=== PATIENT | female | born 1940 | race Caucasian/White ===

== ENCOUNTER 2016-10-10 00:20 | Observation (INO) ==
[2016-10-10] MEDS ORDERED: *HR* Morphine 2 MG/ML SYRINGE IVP PRN (04:32)
[2016-10-10] MEDS ORDERED: Naloxone 0.4 MG/ML INJ IVP PRN (04:32)
[2016-10-10] MEDS ORDERED: Dextrose Gel 15 GM PO PRN ×2 (04:52)
[2016-10-10] MEDS ORDERED: D5% in Water 1,000 ML IVC PRN (04:52)
[2016-10-10] MEDS ORDERED: *HR* Dextrose 50 % in Water (Syg) 50 ML SYRINGE IVP PRN (04:52)
--- NOTE | 2016-10-10 05:07 | Internal Med History&Physical ---
Date of Encounter: 10/10/16 Time of Encounter: 03:00 Assessment and Plan (1) Sepsis Current visit: Yes Status: Acute Patient has tachycardia, fever in [place] emergency room. Elevated lactate and one episode of hypotension. Meet criteria of sepsis. - Early IV fluid resuscitation started from the emergency room. -Continue antibiotic treatment for acute pyelonephritis. - Follow up lactate level. Qualifiers: Sepsis type: sepsis due to unspecified organism Qualified Code(s): A41.9 - Sepsis, unspecified organism (2) DVT prophylaxis Current visit: Yes Status: Acute Heparin subcutaneously (3) Acute kidney injury Current visit: Yes Status: Acute Elevated creatinine level, possibly due to dehydration. Continue hydrate patient and a follow-up renal function (4) Diabetes Current visit: No Status: Chronic Cover patient with sliding scale. Qualifiers: Diabetes mellitus type: type 2 Diabetes mellitus complication status: with unspecified complications Diabetes mellitus detention insulin use: without detention use Qualified Code(s): E11.8 - Type 2 diabetes mellitus with unspecified complications (5) Pyelonephritis Current visit: No Status: Acute Continue Rocephin IV. Follow urine culture (6) Dehydration Current visit: No Status: Acute Continue IV fluid hydration. Follow-up BMP. (7) Hypertension Current visit: Yes Status: Acute BP is not high. Hold lisinopril because of DAO. Follow-up BP Qualifiers: Hypertension type: essential hypertension Qualified Code(s): I10 - Essential (primary) hypertension Internal Medicine - H&P: HPI Chief complaint: Abdominal pain Admitted From: Home Plans for Post Hospital Care: Home History of present illness: Ms. Caraballo is a 76 year old female transferred from [place] the emergency room. Patient presented to the emergency room for abdominal pain. The pain is on the both sided flank. Patient has fever, nausea, and vomiting for about 1 week. In [place] ER, abdominal CT scan has been done, shows right-sided pyelonephritis. Urinalysis shows UTI. Patient has an episode of hypotension with BP 82/52, which was improved after hydration. Patient was admitted as sepsis, acute pyelonephritis, and UTI. CODE STATUS discussed with patient. Full code documented. Past Med Surg Social Fam HX - Past Medical History Medical history: diabetes, hyperlipidemia, hypertension, RA, other Psychiatric history: no psych history, anxiety - Past Surgical History Surgical History: hysterectomy, other - Social History Smoking Status: Never smoker Smokeless Tobacco Status: No Alcohol use: none Drug use: none - Family History Mother Living Status: Cause of : diabetes Hx Family Cardiac Disorders: Yes (chf) Hx Family Respiratory Disorders: No Hx Family Cancer: No Hx Family GI Disorders: No Hx Family Endocrine Disorder: Yes (diabetes) Hx Family Neuromuscular Disorders: No Hx Family Neurologic Disorders: No Hx Family HEENT Disorders: No Hx Family Autoimmune Disorders: No Internal Medicine - H&P: Meds Acetaminophen [Tylenol] 1,000 mg PO Q6H PRN tablet 03/16/15 [Rx] Atorvastatin [Lipitor] 10 mg PO HS 03/16/15 [History] Lisinopril [Zestril] 10 mg PO DAILY 03/16/15 [History] Metformin [Glucophage] 500 mg PO BID 03/16/15 [History] TraMADol [Ultram] 50 mg PO QID 03/16/15 [History] TraZODone 150 mg PO HS PRN 03/16/15 [History] Metoprolol [Lopressor] 12.5 mg PO BID #30 tablet 08/16/15 [Rx] Allergies codeine Allergy (Verified 03/16/15 09:20) Rash All Systems PM: A 10-system review of systems was performed and is negative for pertinent findings except as documented above in the HPI. - Constitutional Vitals: Temp Pulse Resp BP Pulse Ox 98.6 F 83 18 112/58 96 10/10/16 04:43 10/10/16 04:43 10/10/16 04:43 10/10/16 04:43 10/10/16 04:43 General appearance: Present: A&O X 3, no acute distress, answers questions appropriately - Head Head exam: Present: atraumatic, normocephalic - Eye Eye exam: Present: PERRL, conjuntiva pink, sclera anicteric Pupils: Present: PERRL - Neck Neck exam general surgery: Present: supple, trachea midline. Absent: lymphadenopathy - Respiratory Respiratory exam: Present: CTAB. Absent: accessory muscle use, rales, rhonchi, wheezes - Cardiovascular Cardiovascular exam: Present: RRR, +S1, +S2. Absent: diastolic murmur, gallop, rubs, systolic murmur - GI/Abdominal GI/Abdominal exam: Present: normal bowel sounds, soft, no peritoneal signs. Absent: distended, tenderness Additional comments: CVAT B/L - Extremities Exam Extremities exam: Present: warm, radial pulses palpable and symetrical. Absent : calf tenderness, cyanotic, pedal edema - Neurological Exam Neurological exam: Present: CN II-XII intact, oriented X3, no focal deficits. Absent: pronater drift, facial droop, speech deficit - Skin Skin exam: Present: dry, intact
[2016-10-10 05:16] LABS: Basophils % 0.3 %; Eosinophils % 0.4 %; Hematocrit 40.9 % (35.3-44.9); Hemoglobin 13.2 g/dL (11.5-15.4); Immature Granulocytes % 0.5 % (0-4); Lymphocytes # 1.1 K/mcL (0.6-4.6); Lymphocytes % 11.1 %; Mean Corpuscular HGB Conc 32.3 g/dL (31.6-35.5); Mean Corpuscular Hemoglobin 26.7 pg (28.0-33.3); Mean Corpuscular Volume 82.8 fL (83.0-100.0); Mean Platelet Volume 10.8 fL (9.4-12.4); Monocytes # 1.3 K/mcL (0.0-1.3); Monocytes % 13.6 %; Neutrophils # 7.1 K/mcL (1.6-8.9); Platelet Count 169 K/mcL (140-400); Red Blood Count 4.94 M/mcL (3.82-4.97); Segmented Neutrophils % 74.1 %
[2016-10-10 05:26] LABS: Calcium 8.9 mg/dL (8.6-10.8); Potassium 4.3 mEq/L (3.5-4.5)
[2016-10-10] MEDS: *HR* Heparin 5,000 UNIT/ML VIAL SQ SCH ×2 (06:36→18:44)
[2016-10-10] MEDS: Acetaminophen 325 MG TABLET PO PRN ×2 (08:00→16:07)
[2016-10-10] MEDS: Insulin LISPRO 300 UNITS/3 ML VIAL SQ SCH ×4 (08:04→22:14)
--- NOTE | 2016-10-10 09:53 | Event Note ---
Date of Encounter: 10/10/16 Time of Encounter: 09:49 76 year old female with h/o- HTN and DM, admitted with severe sepsis due to UTI/ right sided pyelonephritis, per CT abdomen, presented with persistent fever, nausea, emesis, back pain and abdominal pain. Patient seen and examined, reports some back pain, nausea; improving lower abdominal pain and emesis. Chest- S1, S2 heard; lungs are clear to auscultation B/L Abdomen- soft, mild tenderness in suprapubic area Reviewed labs- slightly elevated LA, Troponin, creatinine; Severe sepsis due to UTI/right-sided pyelonephritis- trend lactic acid and Troponins, likely elevated to severe sepsis. telemetry monitoring. IV hydration and monitor urine output and serum creatinine. Continue IV Rocephin, increase to twice daily and f/up urine and blood cultures. DAO- due to dehydration and sepsis. DM- Accucheck blood glucose monitoring with sliding scale insulin;
[2016-10-10] MEDS: 0.9 % Sodium Chloride 1,000 ML IVC SCH ×2 (12:53→23:29)
[2016-10-10] MEDS: Ondansetron 4 MG/2 ML VIAL IVP PRN (13:02)
[2016-10-11 04:39] LABS: Basophils % 0.4 %; Eosinophils # 0.1 K/mcL (0.0-0.6); Eosinophils % 1.3 %; Hematocrit 31.7 % (35.3-44.9); Immature Granulocytes % 0.6 % (0-4); Lymphocytes # 0.9 K/mcL (0.6-4.6); Mean Corpuscular HGB Conc 32.2 g/dL (31.6-35.5); Mean Corpuscular Hemoglobin 27.2 pg (28.0-33.3); Mean Corpuscular Volume 84.5 fL (83.0-100.0); Mean Platelet Volume 11.7 fL (9.4-12.4); Monocytes # 0.8 K/mcL (0.0-1.3); Monocytes % 16.1 %; Neutrophils # 2.9 K/mcL (1.6-8.9); Red Blood Count 3.75 M/mcL (3.82-4.97); Red Cell Distribution Width 13.1 % (11.5-14.5); Segmented Neutrophils % 61.6 %
[2016-10-11 04:49] LABS: Calcium 8.3 mg/dL (8.6-10.8)
[2016-10-11 05:12] LABS: Hemoglobin 10.2 g/dL (11.5-15.4)
[2016-10-11 05:14] LABS: Platelet Count 125 K/mcL (140-400)
[2016-10-11] MEDS: *HR* Heparin 5,000 UNIT/ML VIAL SQ SCH ×2 (08:17→16:25)
[2016-10-11] MEDS: Insulin LISPRO 300 UNITS/3 ML VIAL SQ SCH ×3 (08:55→18:25)
[2016-10-11] MEDS: Ondansetron 4 MG/2 ML VIAL IVP PRN ×2 (09:01→16:30)
--- NOTE | 2016-10-11 10:40 | Internal Med Progress Note ---
Date of Encounter: 10/11/16 Time of Encounter: 10:00 - Assessment and plan (1) Pyelonephritis Current Visit: Yes Status: Acute (2) Severe sepsis Current Visit: Yes Status: Acute Assessment and plan: Secondary to UTI and right-sided pyelonephritis. Patient was noted to have low- grade fever yesterday, currently improved. Resolved leukocytosis and lactic acidosis. Preliminary blood and urine cultures grow gram-negative rods. Continue IV Rocephin and follow up final cultures. Repeat blood cultures sent today. (3) Bacteremia due to Gram-negative bacteria Current Visit: Yes Status: Acute Assessment and plan: One set of initial blood culture grows gram-negative rods. Continue IV antibiotics, follow up final blood culture results. Repeat blood cultures drawn today. (4) Diabetes Current Visit: Yes Status: Chronic Assessment and plan: Accu-Chek blood glucose monitoring with sliding scale insulin. Diabetic diet. Qualifiers: Diabetes mellitus type: type 2 Diabetes mellitus complication status: with unspecified complications Diabetes mellitus terminal worker insulin use: without fdc use Qualified Code(s): E11.8 - Type 2 diabetes mellitus with unspecified complications (5) Neck pain Current Visit: Yes Status: Acute Assessment and plan: Likely due to improper positioning. Continue when necessary Tylenol and tramadol as patient declines opiate analgesics. (6) Acute kidney injury Current Visit: Yes Status: Acute Assessment and plan: Likely related to severe sepsis. Serum creatinine improving with IV hydration. Continue to monitor. (7) Essential hypertension Current Visit: Yes Status: Chronic - Subjective Interval history: Feels slightly better but reports headache and right-sided neck pain today. No nausea, vomiting, diarrhea; improving back pain and lower abdominal pain; patient still feels sick; - Constitutional Vitals: Temp Pulse Resp BP Pulse Ox 98.6 F 76 22 129/61 97 10/11/16 07:54 10/11/16 07:54 10/11/16 07:54 10/11/16 07:54 10/11/16 07:54 General appearance: Present: A&O X 3, no acute distress, answers questions appropriately - Neck Neck exam general surgery: Present: full ROM (restricted lateral flexion to right due to pain; no edema/erythema/focal swelling noted ) - Respiratory Respiratory exam: Present: CTAB. Absent: accessory muscle use, rales, rhonchi, wheezes - Cardiovascular Cardiovascular exam: Present: RRR, +S1, +S2. Absent: diastolic murmur, gallop, rubs, systolic murmur - GI/Abdominal GI/Abdominal exam: Present: normal bowel sounds, soft, no peritoneal signs. Absent: distended, tenderness - Extremities Exam Extremities exam: Present: full ROM, warm, radial pulses palpable and symetrical. Absent: calf tenderness, cyanotic, pedal edema - Neurological Exam Neurological exam: Present: CN II-XII intact, oriented X3, no focal deficits. Absent: pronater drift, facial droop, speech deficit Internal Medicine: Result - Labs CBC & Chem 7: 10/11/16 04:18 10/11/16 04:18 Labs: Short CBC 10/11/16 Range/Units 04:18 WBC 4.7 D (4.3-11.1) K/mcL Hgb 10.2 L D (11.5-15.4) g/dL Hct 31.7 L (35.3-44.9) % Plt Count 125 L (140-400) K/mcL Neutrophils # 2.9 (1.6-8.9) K/mcL BMP 10/11/16 04:18 Sodium 133 L Potassium 4.0 Chloride 107 Carbon Dioxide 18 L BUN 33 H Creatinine 1.32 H Glucose 115 H Calcium 8.3 L Consult Discharge Plan - Plan Referrals: Lalo Cnon MD [Primary Care Provider] - 10/17/16 9:00 am
[2016-10-11] MEDS: traMADol 50 MG TABLET PO PRN ×2 (11:33→18:28)
[2016-10-11] MEDS: 0.9 % Sodium Chloride 1,000 ML IVC SCH (16:25)
[2016-10-12] MEDS: Insulin LISPRO 300 UNITS/3 ML VIAL SQ SCH ×4 (02:24→17:19)
[2016-10-12] MEDS: *HR* Heparin 5,000 UNIT/ML VIAL SQ SCH ×2 (05:40→21:01)
[2016-10-12 05:45] LABS: Basophils % 0.4 %; Eosinophils # 0.1 K/mcL (0.0-0.6); Eosinophils % 2.2 %; Hematocrit 30.5 % (35.3-44.9); Hemoglobin 10.2 g/dL (11.5-15.4); Immature Granulocytes % 1.1 % (0-4); Lymphocytes # 0.8 K/mcL (0.6-4.6); Lymphocytes % 14.7 %; Mean Corpuscular HGB Conc 33.4 g/dL (31.6-35.5); Mean Corpuscular Volume 80.7 fL (83.0-100.0); Mean Platelet Volume 10.6 fL (9.4-12.4); Monocytes # 0.7 K/mcL (0.0-1.3); Monocytes % 12.3 %; Neutrophils # 3.8 K/mcL (1.6-8.9); Platelet Count 158 K/mcL (140-400); Red Blood Count 3.78 M/mcL (3.82-4.97); Red Cell Distribution Width 13.1 % (11.5-14.5); Segmented Neutrophils % 69.3 %
[2016-10-12 06:03] LABS: Calcium 8.6 mg/dL (8.6-10.8)
[2016-10-12] MEDS: 0.9 % Sodium Chloride 1,000 ML IVC SCH (08:14)
[2016-10-12] MEDS: *HR* OxyCODONE Immed Rel 5 MG TABLET PO PRN ×2 (09:23→21:01)
[2016-10-12] MEDS: amLODIPine 5 MG TABLET PO SCH (09:23)
--- NOTE | 2016-10-12 10:15 | Internal Med Progress Note ---
Date of Encounter: 10/12/16 Time of Encounter: 09:45 - Assessment and plan (1) Neck pain Current Visit: Yes Status: Acute Assessment and plan: Continues to have persistent right-sided neck pain. To rule out focus of infection given her recent bacteremia. We will get CT neck and cervical spine. Continue when necessary tramadol and Percocet as patient declines IV opiate analgesics. Physical therapy evaluation. (2) Pyelonephritis Current Visit: Yes Status: Acute (3) Severe sepsis Current Visit: Yes Status: Acute Assessment and plan: Secondary to UTI and right-sided pyelonephritis. Improving clinically. Resolved fever, leukocytosis and lactic acidosis. Blood and urine cultures at admission grow pansensitive Escherichia coli. Continue IV Rocephin. 2 sets of repeat blood cultures are so far negative. (4) Bacteremia due to Gram-negative bacteria Current Visit: Yes Status: Acute Assessment and plan: Plan as above. (5) Diabetes Current Visit: Yes Status: Chronic Assessment and plan: Accu-Chek blood glucose monitoring with sliding scale insulin. Diabetic diet. Qualifiers: Diabetes mellitus type: type 2 Diabetes mellitus complication status: with unspecified complications Diabetes mellitus correction insulin use: without correction use Qualified Code(s): E11.8 - Type 2 diabetes mellitus with unspecified complications (6) Acute kidney injury Current Visit: Yes Status: Acute Assessment and plan: Likely related to severe sepsis. Serum creatinine improving with IV hydration. Continue to monitor. (7) Essential hypertension Current Visit: Yes Status: Chronic Assessment and plan: Blood pressure noted to be improving. We will increase metoprolol and continue to monitor. - Subjective Interval history: Reports persistent right-sided neck pain, no visible swelling or redness; patient is very uncomfortable and miserable from the pain. No fever, emesis; persistent nausea and improving abdominal pain; - Constitutional Vitals: Temp Pulse Resp BP Pulse Ox 98 F 80 16 154/80 97 10/12/16 08:01 10/12/16 08:01 10/12/16 07:41 10/12/16 08:01 10/12/16 07:41 General appearance: Present: mild distress, A&O X 3, answers questions appropriately - Respiratory Respiratory exam: Present: CTAB. Absent: accessory muscle use, rales, rhonchi, wheezes - Cardiovascular Cardiovascular exam: Present: RRR, +S1, +S2. Absent: diastolic murmur, gallop, rubs, systolic murmur - GI/Abdominal GI/Abdominal exam: Present: distended, normal bowel sounds, soft, no peritoneal signs. Absent: tenderness - Extremities Exam Extremities exam: Present: full ROM, warm, radial pulses palpable and symetrical. Absent: calf tenderness, cyanotic, pedal edema Internal Medicine: Result - Labs CBC & Chem 7: 10/12/16 05:37 10/12/16 05:37 Labs: Short CBC 10/12/16 Range/Units 05:37 WBC 5.4 (4.3-11.1) K/mcL Hgb 10.2 L (11.5-15.4) g/dL Hct 30.5 L (35.3-44.9) % Plt Count 158 (140-400) K/mcL Neutrophils # 3.8 (1.6-8.9) K/mcL BMP 10/12/16 05:37 Sodium 136 Potassium 4.0 Chloride 107 Carbon Dioxide 22 BUN 24 H Creatinine 1.12 H Glucose 129 H Calcium 8.6 Consult Discharge Plan - Plan Referrals: Lalo Conn MD [Primary Care Provider] - 10/17/16 9:00 am
[2016-10-13 04:54] LABS: BUN/Creatinine Ratio 17 (6-26); Blood Urea Nitrogen 18 mg/dL (7-20); Carbon Dioxide 25 mEq/L (19-29); Chloride 103 mEq/L (98-109); Glucose 168 mg/dL (70-99); Osmolality,Calculated 288 (280-300); Potassium 3.7 mEq/L (3.5-4.5); Sodium 136 mEq/L (136-145); eGFR For African Americans > 60 (> 60); eGFR For Non-African Americans 52 (> 60)
[2016-10-13] MEDS: *HR* Heparin 5,000 UNIT/ML VIAL SQ SCH (06:10)
[2016-10-13] MEDS: Insulin LISPRO 300 UNITS/3 ML VIAL SQ SCH ×3 (06:16→11:54)
[2016-10-13] MEDS: amLODIPine 5 MG TABLET PO SCH (08:09)
[2016-10-13] MEDS: 0.9 % Sodium Chloride 1,000 ML IVC SCH ×2 (08:10→08:30)
--- NOTE | 2016-10-13 10:05 | Discharge Summary ---
Date of Encounter: 10/13/16 Time of Encounter: 09:54 - Discharge Diagnosis (1) Neck pain Priority: Primary Status: Acute (2) Pyelonephritis Priority: Primary Status: Acute (3) Severe sepsis Priority: Primary Status: Acute (4) Bacteremia due to Gram-negative bacteria Priority: Primary Status: Acute (5) Diabetes Priority: Secondary Status: Chronic Qualifiers: Diabetes mellitus type: type 2 Diabetes mellitus complication status: with unspecified complications Diabetes mellitus penitentiary insulin use: without intermediate school teacher use Qualified Code(s): E11.8 - Type 2 diabetes mellitus with unspecified complications (6) Acute kidney injury Priority: Primary Status: Acute (7) Essential hypertension Priority: Secondary Status: Chronic - Discharge Medications Prescriptions: OxyCODONE Immed Rel [Roxicodone 5 MG] 5 mg PO Q8HR PRN #10 tablet PRN Reason: Pain amLODIPine [Norvasc] 5 mg PO DAILY #30 tablet cephALEXin [Keflex] 500 mg PO BID #22 capsule Metoprolol [Lopressor] 25 mg PO BID #60 tablet Home Medications: Acetaminophen [Tylenol] 1,000 mg PO Q6H PRN tablet 03/16/15 [Rx] Atorvastatin [Lipitor] 20 mg PO HS 03/16/15 [History] TraMADol [Ultram] 50 mg PO QID PRN 03/16/15 [History] Gabapentin [Neurontin] 300 mg PO BID 10/10/16 [History] Loperamide HCl [Imodium A-D] 2 mg PO Q6H PRN 10/10/16 [History] Loratadine/Pseudophed (12 HR) [Claritin D (12HR)] 1 tab PO BID PRN 10/10/16 [ History] Ondansetron ODT [Zofran ODT] 4 mg SL Q8HR PRN 10/10/16 [History] glipiZIDE [Glucotrol] 5 mg PO DAILY 10/10/16 [History] Metoprolol [Lopressor] 25 mg PO BID #60 tablet 10/13/16 [Rx] OxyCODONE Immed Rel [Roxicodone 5 MG] 5 mg PO Q8HR PRN #10 tablet 10/13/16 [Rx] amLODIPine [Norvasc] 5 mg PO DAILY #30 tablet 10/13/16 [Rx] cephALEXin [Keflex] 500 mg PO BID #22 capsule 10/13/16 [Rx] Allergies/Adverse Reactions: Allergies codeine Allergy (Verified 03/16/15 09:20) Rash Procedures/tests Complete & Pending: Procedures Performed prior 72 hours Category Date Time Status CT cervical spine wo con [CT] Routine Cat Scan 10/12/16 10:10 Completed Date of admission: 10/10/16 02:47 Primary care physician: Rito Escudero Consults: 10/12/16 15:21 Consult to Physical Therapy [CONS] Routine Comment: Evaluate, develop and implement POC Reason for Consult: Weakness, right neck pain, severe sepsis/UTI Discharging clinician: Stpehania Spicer Anticipated date of discharge: 10/13/16 - Patient Status Disposition: Home Health Service Condition: Fair Functional capacity at discharge: uses cane/walker Overall status at discharge: patient is progressing back to baseline - Discharge Instructions Instructions: Cephalexin (By mouth), Metoprolol (By mouth), Oxycodone, Rapid Release (By mouth), Amlodipine (By mouth), Urinary Tract Infection in Women (DC) , Meal Planning with Diabetes Exchanges (DC) Follow Up With: Lalo Conn MD [Primary Care Provider] - 10/17/16 9:00 am - Diet and Activity Activity: as per physical therapy Diet: diabetic diet, low fat, low cholesterol, low salt diet Hospital course: Ms. Caraballo is a 76 year old female with the above medical problems, admitted with fever, nausea, vomiting and abdominal pain. SHe was noted to have severe sepsis from UTI and right-sided pyelonephritis, as evidenced by labs and CT abdomen, UA. SHe was started on IV Rocephin, aggressive IV hydration and supportive care and she gradually improved and remained hemodynamically stable, with improved fever/leukocytosis/lactic acidosis. Initial blood and urine cultures grew pansensitive E.coli and repeat blood cultures are so far negative. sHe c/o- right neck pain in the hospital, CT C-spine showed no e/o- osteomyelitis/focal abscess or infection. Her pain improved with pain medications. PT evaluation recommends [facility], for which referral has been completed. She is medically stable for discharge. - Time Spent with Patient Total time spent providing and/or coordinating discharge services: Greater than 30 minutes (50 min) - Constitutional Vitals: Temp Pulse Resp BP Pulse Ox 97.6 F 86 18 162/66 94 10/13/16 08:23 10/13/16 08:23 10/13/16 08:23 10/13/16 08:23 10/13/16 08:23 General appearance: Present: A&O X 3, answers questions appropriately - Respiratory Respiratory exam: Present: CTAB. Absent: accessory muscle use, rales, rhonchi, wheezes - Cardiovascular Cardiovascular exam: Present: RRR, +S1, +S2. Absent: diastolic murmur, gallop, rubs, systolic murmur
--- NOTE | 2016-10-13 10:07 | Physician Discharge Referral ---
Home Health/Hosp Referral Info Transfer to: Home Health Attending Provider: Stephania Spicer Provider in Charge Post Discharge: PCP - Diagnosis (1) Neck pain Priority: Primary Status: Acute (2) Pyelonephritis Priority: Primary Status: Acute (3) Severe sepsis Priority: Primary Status: Acute (4) Bacteremia due to Gram-negative bacteria Priority: Primary Status: Acute (5) Diabetes Priority: Secondary Status: Chronic (6) Acute kidney injury Priority: Primary Status: Acute (7) Essential hypertension Priority: Secondary Status: Chronic - Respiratory Orders Smoking Cessation: Smoking cessation has been advised. For more information, call the [place] Tobacco Quit Line at 9-630-SGZD-NOW. - Diet/Nutrition Diet/Nutrition Orders: Cardiac, No Concentrated Sweets (diabetic) - Activity Activity Orders: Ambulate - Services Needed Following services are medically necessary services: Nursing, Physical Therapy, Occupational Therapy - Transfer Medications Prescriptions: OxyCODONE Immed Rel [Roxicodone 5 MG] 5 mg PO Q8HR PRN #10 tablet PRN Reason: Pain amLODIPine [Norvasc] 5 mg PO DAILY #30 tablet cephALEXin [Keflex] 500 mg PO BID #22 capsule Metoprolol [Lopressor] 25 mg PO BID #60 tablet Home Medications: Acetaminophen [Tylenol] 1,000 mg PO Q6H PRN tablet 03/16/15 [Rx] Atorvastatin [Lipitor] 20 mg PO HS 03/16/15 [History] TraMADol [Ultram] 50 mg PO QID PRN 03/16/15 [History] Gabapentin [Neurontin] 300 mg PO BID 10/10/16 [History] Loperamide HCl [Imodium A-D] 2 mg PO Q6H PRN 10/10/16 [History] Loratadine/Pseudophed (12 HR) [Claritin D (12HR)] 1 tab PO BID PRN 10/10/16 [ History] Ondansetron ODT [Zofran ODT] 4 mg SL Q8HR PRN 10/10/16 [History] glipiZIDE [Glucotrol] 5 mg PO DAILY 10/10/16 [History] Metoprolol [Lopressor] 25 mg PO BID #60 tablet 10/13/16 [Rx] OxyCODONE Immed Rel [Roxicodone 5 MG] 5 mg PO Q8HR PRN #10 tablet 10/13/16 [Rx] amLODIPine [Norvasc] 5 mg PO DAILY #30 tablet 10/13/16 [Rx] cephALEXin [Keflex] 500 mg PO BID #22 capsule 10/13/16 [Rx] Allergies/Adverse Reactions: Allergies codeine Allergy (Verified 03/16/15 09:20) Rash Certification: Further, I certify that my clinical findings support that this patient is homebound (i.e. absences from home require considerable and taxing effort and are for medical reasons or yarsani services or infrequently or short duration when for other reasons) because: Homebound Reason: Patient requires assistance of a person or device to safely leave home, Leaving home requires considerable and taxing effort due to condition Attestation: My signature below is to certify that this patient is under my care and that I, or nurse practitioner, or a physician's senior agricultural assistant working with me, has a face-to -face encounter with this patient.
[2016-10-13 11:54] VITALS: BP 131/58
== END 2016-10-13 13:43 | disposition home health service (06) ==
LOC: 2NNU → SUATTDRO 05:50 → 2NNU 10-11 04:48
PROVIDERS: ADMIT Internal Medicine; ATTEND Internal Medicine

== ENCOUNTER 2017-05-13 06:13 | Observation (INO) ==
[2017-05-13] MEDS ORDERED: Lidocaine -MPF 1% 2 ML VIAL ID ONE (06:28)
[2017-05-13] MEDS ORDERED: CeFAZolin Syr 2,000MG/20 ML 2,000 MG/20 ML SYRINGE IVPB ONE (06:28)
[2017-05-13] MEDS ORDERED: Albuterol 2.5 MG/3 ML NEBULIZER IH ONE (06:41)
[2017-05-13] MEDS ORDERED: *HR* Remifentanil 2 MG VIAL IVP ONE (07:18)
[2017-05-13] MEDS ORDERED: *HR* Propofol 200 MG/20 ML VIAL IVP ONE (07:23)
[2017-05-13] MEDS ORDERED: *HR* FentaNYL (PF) 100 MCG/2 ML VIAL ONE (07:23)
[2017-05-13] MEDS ORDERED: *HR* Labetalol 20 MG/4 ML SYRINGE IVP PRN (07:26)
[2017-05-13] MEDS ORDERED: *HR* Promethazine 25 MG/ML VIAL IVP PRN (07:26)
[2017-05-13] MEDS ORDERED: *HR* HYDROmorphone (PF) 1 MG/ML SYRINGE IVP PRN ×2 (07:26→08:55)
[2017-05-13] MEDS ORDERED: Acetaminophen IV 1,000 MG/100 ML INFUS..BTL IVPB ONE (07:29)
--- NOTE | 2017-05-13 07:32 | Anesthesia Evaluation PreOp ---
Date of Encounter: 05/13/17 Time of Encounter: 07:20 - Past History Planned Operation: PLIF L2-4 Cardiac History: HTN (maintained on Amlodpine, Metoprolol), Hyperlipidemia ( maintained on Simvastatin), Other (ECHO 08/2015 - mpressions: Sinus rhythm with frequent PVCs in a bigeminal pattern. Normal LV systolic function, LVEF 55-60%. Mild concentric left ventricular hypertrophy. Moderate left ventricular diastolic dysfunction. Normal right ventricular structure and function. Mildly dilated left atrium. Mild mitral regurgitation. No evidence of pulmonary hypertension. Left Ventricular Wall Motion: Rest Echo Findings All wall segments showed normal motion.) Pulmonary History: Other (double pneumonia 04/2017) OVEN BAKER History: Other (R>>LLE pain maintained on Gabapentin, TRa) Other Medical History: Diabetes Type II, Other (Gout maintained on Colchicine) Anesthesia History: No Prior Anesthetic Complications, Past Anesthesia Alcohol Use: none Drug use: none Medications and Allergies Atorvastatin [Lipitor] 20 mg PO HS 03/16/15 [History] TraMADol [Ultram] 50 mg PO QID PRN 03/16/15 [History] Gabapentin [Neurontin] 300 mg PO BID 10/10/16 [History] Loperamide HCl [Imodium A-D] 2 mg PO Q6H PRN 10/10/16 [History] glipiZIDE [Glucotrol] 5 mg PO DAILY 10/10/16 [History] Metoprolol [Lopressor] 25 mg PO BID #60 tablet 10/13/16 [Rx] amLODIPine [Norvasc] 5 mg PO DAILY #30 tablet 10/13/16 [Rx] Albuterol Sulfate [Albuterol Inhaler] 2 puff IH Q4HR PRN 05/13/17 [History] Furosemide [Lasix] 40 mg PO DAILY 05/13/17 [History] Naproxen Sodium [Aleve] 220 mg PO BID PRN 05/13/17 [History] 3 Allergy/AdvReac Type Severity Reaction Status Date / Time codeine AdvReac Vomiting Verified 05/13/17 07:10 - Meds/Allergy Pre-op Review Medications Reviewed: Yes Allergies Reviewed: Yes Beta Blockers on Current Med List: No Anesthesia Results - Labs Laboratory Tests 04/15/17 14:08 WBC 5.9 Hgb 12.9 Hct 40.3 Plt Count 199 Laboratory Tests 04/15/17 04/15/1704/15/17 14:08 14:08 14:08 PT 11.4 INR 1.1 Sodium 142 Potassium 4.8 H Chloride 107 Carbon Dioxide 24 BUN 23 H Creatinine 1.13 H Est GFR (Non-Af Amer) 47 L Est Mean Plasma Glucose 128 Hemoglobin A1c 6.1 H - Imaging EKG: image reviewed (87bpm, INferior NE probably old) Anesthesia Exam O2 Sat Height 1.65 m Height 1.65 m Height 1.65 m Weight 82.554 kg Weight 82.554 kg Weight 82.554 kg O2 Sat by Pulse Oximetry 92 O2 Sat by Pulse Oximetry 92 Vital Signs Resp Pulse Ox 18 92 05/13/17 06:48 05/13/17 06:48 O2 Sat Height 1.65 m Height 1.65 m Height 1.65 m Weight 82.554 kg Weight 82.554 kg Weight 82.554 kg O2 Sat by Pulse Oximetry 92 O2 Sat by Pulse Oximetry 92 Vital Signs Resp Pulse Ox 18 92 05/13/17 06:48 05/13/17 06:48 " Height: 5'5" Weight: 182# bmi = 30 NPO (# of Hours): mnoC - HEENT Pupil (Motor): Pupils equal, EOMI Teeth: Normal Denture Type: Upper: Complete Oral Opening: Greater than 3 - OVEN BAKER LOC: Oriented OVEN BAKER Motor: Normal RUE, Normal LUE, Normal Face, Deficit RLE (Pain & weakness), Deficit LLE OVEN BAKER Sensory: Normal: RUE, LUE, RLE, LLE, Face - Cardiac Rhythm: Regular Murmur: None - Pulmonary Breath Sounds: bilateral Clear Respiratory Effort: Symmetrical Anesthesia Assess/Plan ASA Score: 3 Modified [place] Scale for Level of Consciousness: Cooperative, oriented, and tranquil Anesthetic Plan: General Monitoring Plan: Standard Monitors Recovery Plan: PACU Anes Supervising Prov Stmt: Pt seen/evaluated, R&B discussed, questions answered and consent obtained. Yuri Calderón MD
--- NOTE | 2017-05-13 07:43 | History & Physical Report ---
Date of Encounter: 05/13/17 Time of Encounter: 07:35 24 Hour HP Update - Instructions Instructions: If the History and Physical is less than 30 days old and was completed prior to A.M. admission and or procedure and has NOT been updated on calendar day of procedure please complete this update prior to performing procedure. - Update Patient reports changes in Medical Condition: No Changes in examination, assessment, or condition: No Changes in Medication: No Preop tests/diagnostics Reviewed: Yes Pre-Op MRSA Screen: Negative Surgery Remains Indicated: Yes Consent for Planned Operative Procedure(s) Verified: Yes - Pre-Operative Checklist Preoperative Checklist Indicated: No Prophylactic Antibiotic Ordered: Yes Home Medications Include Beta Tu: Yes Beta Tu Taken Today (Day of Surgery): No Beta Tu Taken Yesterday (Day Prior to Surgery): Yes Is VTE Prophylaxis Indicated?: Yes
[2017-05-13] MEDS: Ringers Solution, Lactated 1,000 ML IVC SCH ×3 (07:44→12:06)
[2017-05-13] MEDS ORDERED: EPHEDrine 50 MG/ML VIAL ONE (08:45)
[2017-05-13] MEDS ORDERED: Ondansetron 4 MG/2 ML VIAL IVP ONE (08:55)
[2017-05-13] MEDS ORDERED: *HR* Meperidine 25 MG/ML SYRINGE IVP PRN (08:55)
[2017-05-13] MEDS ORDERED: *HR* HYDROmorphone 2 MG/ML SYRINGE ONE (11:18)
[2017-05-13] MEDS ORDERED: *HR* Metoprolol 5 MG/5 ML VIAL IVP ONE (11:28)
--- NOTE | 2017-05-13 11:36 | Orthopedic Operative Note ---
Date of procedure: 05/13/17 Pre-op diagnosis: Spondylolisthesis, lumbar stenosis Post-op diagnosis: same Operation/Findings: Cnc Set Up Operator Lumbar Interbody Fusion L2-L4: The patient successfully underwent general endotracheal anesthesia. The patient was given antibiotics prior to the start of the procedure. Compression boots and stockings were used for deep vein thrombosis prophylaxis. A Santana catheter was placed. Leads for neuro monitoring were placed on the upper and lower extremities. This included the cranium. The neuro monitoring personnel confirmed there were satisfactory readings prior to the start of the procedure. The patient was turned prone on the [place] table. The back was prepped and draped in the usual sterile fashion. An incision was was marked and centered over the involved L2-L4 levels in the mid line. The incision was deepened through the lumbar fascia. Bovie cautery and Merritt elevators were used to reflect the paraspinal musculature at the lateral extent of the transverse processes of the involved L2 -L4 levels. Afshan clamps were placed over the L3 and L4 spinous processes. An intraoperative lateral fluoroscopy graft was obtained. A conversation was held between the surgeon and radiologist and both confirmed we had the correct operative levels. We then placed pedicle screws in standard fashion with the aid of fluoroscopy and anatomic landmarks. Briefly a starter awl was used. A gearshift was subsequently used to enter the steamboat pilot hole via a transpedicular route into the vertebral body. The steamboat pilot hole was tapped with an undersized instrument, and subsequently six 6.5 x 40 mm pedicle screws were placed bilaterally at the indicated L2, L3, and L4 levels. The screws were tested with the aid of the neurologic monitoring staff via pedicle screw stimulation. All reading suggested there was no significant cortical wall breech. The screws were also evaluated fluoro- graphically and appeared to be in satisfactory position. We then turned our attention to the decompression portion of the procedure. We removed the supraspinous and interspinous ligaments and subsequently the insertion of the ligamentum flavum on the undersurface of the proximal L3 lamina was dislodged with a curette. We then removed the ligamentum flavum as well as undercut the L3-4 facets at this L3-4 level to decompress the lateral recesses. We also performed a L3 laminectomy. After the decompression which was over and above that which was required to place the interbody graft, the foramen and traversing roots at this L3-4 level were found to be free and patent. We also took part of the medial facet in order to aid in the decompression. We moved proximally to the L2-3 level and again remove hypertrophied ligamentum flavum, undercut the L2-3 facets to decompress the lateral recesses, and partial medial facetectomies. We used a ball-tipped probe and found the foramen at this level as well as the lateral recesses to be decompressed. We then protected the neural elements including the thecal sac and traversing L4 nerve root on the right with a dural retractor. We made an annulotomy into the L3-L4 disc space and then removed the entire disc material using Pituitary instruments. We trialed various size grafts after the endplates were prepared for graft insertion. A 10 x 26 enter body graft fit well within the L3-L4 disc space. We obtained some bone from the right posterior superior iliac spine through us a separate incision and combined with this with the bone which we had saved from the L2 and L3 laminectomy portion of the procedure. This autograft bone was first placed in the anterior portion of the L3-4 disc space and additional bone was placed within the interbody graft spacer. We then placed the interbody graft spacer obliquely across the L3-L4 disc space towards the midline while protecting the neural elements with a root retractor. When the graft was found to be in satisfactory position the metal neutralizer was removed. We then copiously irrigated the wound. We then decorticated the L2, L3, and L4 transverse processes as well as the facet joints of the involved L2-3 and L3-4 levels to aid in the posterolateral fusion. We placed autograft bone in the lateral gutters over these regions. We then placed rods within the screw heads of the involved L2-L4 levels and first locked the distal screws and then subsequently locked the proximal screws so as to improve and reduce the spondylolisthesis previously seen. We then closed the wound in layers with 1 Vicryl for the fascia, 2-0 Vicryl. Subcutaneous tissue, and Dermabond was used for skin closure. Sterile dressings were placed over the wound. The patient was turned supine on a hospital bed and extubated. All sponge instruments and needle counts were correct at the end of the procedure. The patient tolerated the procedure well without complications. Anesthesia: GETA Surgeon: Rambo Soliz Jr Was there an assistant spa manager present: No Estimated blood loss (cc): 250 Specimen: None Condition: stable Disposition: PACU
--- NOTE | 2017-05-13 12:23 | Anesthesia Evaluation Post Op ---
Date of Encounter: 05/13/17 Time of Encounter: 12:22 - Vital Signs Vital Signs: Selected Entries 05/13/17 12:09 Temperature 98.5 F Pulse Rate 98 Respiratory Rate 14 Blood Pressure 140/86 O2 Sat by Pulse Oximetry 94 Oxygen Flow Rate (LPM) 2 - Lungs Lungs: Clear Ascult./Percussion - Airway Airway: Non-obstructed - Cardiovascular Regular Rate - Mental Status Mental Status: Alert & Oriented, Answers Appropriately - Pain Pain Scale: 0 Pain Scale used: Numeric (1 - 10) - Nausea Vomiting Nausea Vomiting: Responds to treatment with IV Meds - Hydration Hydration: Ice chips, Santana catheter - Discharge PostOp Status: Transfer Patient to floor
[2017-05-13] MEDS ORDERED: Acetaminophen 325 MG TABLET PO PRN (12:42)
[2017-05-13] MEDS ORDERED: *HR* OxyCODONE Immed Rel 5 MG TABLET PO SCH (12:42)
[2017-05-13] MEDS ORDERED: *HR* Morphine 2 MG/ML SYRINGE IVP PRN (12:42)
[2017-05-13] MEDS ORDERED: Ringers Solution, Lactated 1,000 ML IVC SCH (12:42)
[2017-05-13] MEDS ORDERED: Naloxone 0.4 MG/ML INJ IVP PRN (12:42)
[2017-05-13] MEDS: *HR* OxyCODONE Immed Rel 5 MG TABLET PO PRN ×2 (15:00→20:31)
[2017-05-13] MEDS: CeFAZolin Premix DUPLEX 2,000 MG/50 ML BAG IVPB SCH ×2 (16:06→23:12)
[2017-05-13] MEDS: Ondansetron 4 MG/2 ML VIAL IVP PRN (20:32)
[2017-05-14 04:48] LABS: Basophils % 0.1 %; Eosinophils % 0.1 %; Hematocrit 29.2 % (35.3-44.9); Hemoglobin 9.4 g/dL (11.5-15.4); Immature Granulocytes % 0.5 % (0-4); Immature Platelets 5.1 % (1.1-6.1); Lymphocytes # 1.3 K/mcL (0.6-4.6); Mean Corpuscular HGB Conc 32.2 g/dL (31.6-35.5); Mean Corpuscular Volume 80.9 fL (83.0-100.0); Mean Platelet Volume 10.8 fL (9.4-12.4); Monocytes % 8.6 %; Neutrophils # 8.8 K/mcL (1.6-8.9); Platelet Count 201 K/mcL (140-400); Red Blood Count 3.61 M/mcL (3.82-4.97); Red Cell Distribution Width 14.6 % (11.5-14.5); Segmented Neutrophils % 78.7 %
[2017-05-14 05:08] LABS: Calcium 8.6 mg/dL (8.6-10.3); Potassium 4.9 mEq/L (3.5-5.1)
[2017-05-14] MEDS: *HR* GlipiZIDE 5 MG TABLET PO SCH (07:44)
[2017-05-14] MEDS: Furosemide 40 MG TABLET PO SCH (07:44)
[2017-05-14] MEDS: amLODIPine 5 MG TABLET PO SCH (07:44)
[2017-05-14] MEDS: Ondansetron 4 MG/2 ML VIAL IVP PRN (11:00)
[2017-05-14] MEDS: *HR* OxyCODONE Immed Rel 5 MG TABLET PO PRN (15:04)
[2017-05-15] MEDS: *HR* OxyCODONE Immed Rel 5 MG TABLET PO PRN (07:24)
[2017-05-15] MEDS: Furosemide 40 MG TABLET PO SCH ×2 (09:28→09:30)
[2017-05-15] MEDS: amLODIPine 5 MG TABLET PO SCH (09:28)
[2017-05-15] MEDS: *HR* GlipiZIDE 5 MG TABLET PO SCH (09:28)
[2017-05-15] MEDS ORDERED: *HR* Dextrose 50 % in Water (Syg) 50 ML SYRINGE IVP PRN (15:28)
[2017-05-15] MEDS ORDERED: D5% in Water 1,000 ML IVC PRN (15:28)
[2017-05-15] MEDS ORDERED: Dextrose Gel 15 GM/37.5 ML TUBE PO PRN ×2 (15:28)
[2017-05-15 16:32] LABS: BUN/Creatinine Ratio 24 (6-26); Blood Urea Nitrogen 25 mg/dL (8-23); Carbon Dioxide 26 mEq/L (23-29); Chloride 102 mEq/L (98-107); Glucose 156 mg/dL (70-105); Osmolality,Calculated 284 (280-300); Potassium 3.9 mEq/L (3.5-5.1); Sodium 133 mEq/L (136-145); eGFR For African Americans > 60 (> 60); eGFR For Non-African Americans 51 (> 60)
[2017-05-15 16:41] LABS: Basophils % 0.2 %; Hematocrit 28.5 % (35.3-44.9); Hemoglobin 9.8 g/dL (11.5-15.4); Immature Granulocytes % 1.2 % (0-4); Lymphocytes % 7.3 %; Mean Corpuscular HGB Conc 34.4 g/dL (31.6-35.5); Mean Corpuscular Hemoglobin 26.9 pg (28.0-33.3); Mean Corpuscular Volume 78.3 fL (83.0-100.0); Monocytes # 1.5 K/mcL (0.0-1.3); Monocytes % 8.2 %; Platelet Count 212 K/mcL (140-400); Red Blood Count 3.64 M/mcL (3.82-4.97); Red Cell Distribution Width 14.8 % (11.5-14.5); Segmented Neutrophils % 83.1 %
[2017-05-15 17:02] LABS: Lymphocytes # 1.4 K/mcL (0.6-4.6); Neutrophils # 15.4 K/mcL (1.6-8.9)
[2017-05-15] MEDS: Insulin LISPRO 300 UNITS/3 ML VIAL SQ SCH ×2 (18:49→23:22)
[2017-05-15] MEDS ORDERED: Ipratropium/Albuterol Neb 3 ML IH PRN (19:03)
[2017-05-15] MEDS: *HR* HYDROcodone/Acet 5/325 mg TABLET PO PRN (22:07)
[2017-05-15] MEDS: Ondansetron 4 MG/2 ML VIAL IVP PRN (22:11)
[2017-05-16 05:26] LABS: Basophils # 0.1 K/mcL (0.0-0.2); Basophils % 0.3 %; Eosinophils % 0.2 %; Hematocrit 28.6 % (35.3-44.9); Hemoglobin 9.4 g/dL (11.5-15.4); Immature Granulocytes % 1.6 % (0-4); Lymphocytes # 1.8 K/mcL (0.6-4.6); Lymphocytes % 11.2 %; Mean Corpuscular HGB Conc 32.9 g/dL (31.6-35.5); Mean Corpuscular Hemoglobin 26.2 pg (28.0-33.3); Mean Corpuscular Volume 79.7 fL (83.0-100.0); Mean Platelet Volume 10.8 fL (9.4-12.4); Monocytes # 1.1 K/mcL (0.0-1.3); Monocytes % 7.2 %; Neutrophils # 12.6 K/mcL (1.6-8.9); Platelet Count 223 K/mcL (140-400); Red Blood Count 3.59 M/mcL (3.82-4.97); Red Cell Distribution Width 14.6 % (11.5-14.5); Segmented Neutrophils % 79.5 %
[2017-05-16 05:48] LABS: Calcium 9.1 mg/dL (8.6-10.3); Potassium 3.9 mEq/L (3.5-5.1)
[2017-05-16] MEDS: Furosemide 40 MG TABLET PO SCH (08:53)
[2017-05-16] MEDS: *HR* GlipiZIDE 5 MG TABLET PO SCH (08:53)
[2017-05-16] MEDS: amLODIPine 5 MG TABLET PO SCH (08:53)
[2017-05-16] MEDS: Insulin LISPRO 300 UNITS/3 ML VIAL SQ SCH ×4 (08:54→22:16)
[2017-05-16] MEDS: *HR* HYDROcodone/Acet 5/325 mg TABLET PO PRN (10:58)
[2017-05-17] MEDS: Insulin LISPRO 300 UNITS/3 ML VIAL SQ SCH ×4 (08:07→21:13)
[2017-05-17] MEDS: *HR* GlipiZIDE 5 MG TABLET PO SCH (08:07)
[2017-05-17] MEDS: Furosemide 40 MG TABLET PO SCH (08:08)
[2017-05-17] MEDS: amLODIPine 5 MG TABLET PO SCH (08:08)
[2017-05-17] MEDS: *HR* HYDROcodone/Acet 5/325 mg TABLET PO PRN ×2 (15:32→20:08)
--- NOTE | 2017-05-17 21:53 | Spine Progress Note ---
Date of Encounter: 05/14/17 Time of Encounter: 15:10 Subjective Principal diagnosis: Status post lumbar fusion Interval history: The patient is without complaints. Having episodes of confusion. Afebrile vital signs are stable. Dressing is clean dry and intact. Neurovascularly intact with regard to bilateral lower extremities. Fires all upper and lower extremity motor groups. . Assessment :stable. Plan mobilize ,continue analgesics, discharge planning. Objective Vital signs: Vital Signs Temp Pulse Resp BP Pulse Ox 05/17/17 19:36 97.9 F 77 14 111/66 93 05/17/17 15:14 98.3 F 85 16 117/57 94 05/17/17 11:10 97.9 F 76 16 112/62 96 05/17/17 07:08 98.6 F 83 18 100/57 95 05/17/17 04:39 98.7 F 83 16 106/67 92 05/17/17 00:39 99.2 F 77 16 94/54 95 Intake and Output 05/17/17 05/17/17 05/17/17 07:59 15:59 23:59 Intake Total 500 / 500 360 / 360 Output Total 150 / 150 200 / 200 150 / 150 Balance 350 / 350 160 / 160 -150 / -150 Intake: Oral 500 / 500 360 / 360 Output: Urine 150 / 150 200 / 200 150 / 150 Other: Meal Lunch Percent of Meal Consumed 35% # Voids 1 1 Blood Glucose* 124 133 114 - Labs CBC & BMP: 05/16/17 05:06 05/16/17 05:06 Labs: Abnormal lab results WBC 15.8 K/mcL (4.3-11.1) H 05/16/17 05:06 RBC 3.59 M/mcL (3.82-4.97) L 05/16/17 05:06 Hgb 9.4 g/dL (11.5-15.4) L 05/16/17 05:06 Hct 28.6 % (35.3-44.9) L 05/16/17 05:06 MCV 79.7 fL (83.0-100.0) L 05/16/17 05:06 MCH 26.2 pg (28.0-33.3) L 05/16/17 05:06 RDW 14.6 % (11.5-14.5) H 05/16/17 05:06 Neutrophils # 12.6 K/mcL (1.6-8.9) H 05/16/17 05:06 Sodium 135 mEq/L (136-145) L 05/16/17 05:06 BUN 31 mg/dL (8-23) H 05/16/17 05:06 Est GFR ( Amer) 55 (> 60) L 05/16/17 05:06 Est GFR (Non-Af Amer) 45 (> 60) L 05/16/17 05:06 BUN/Creatinine Ratio 27 (6-26) H 05/16/17 05:06 Glucose 150 mg/dL (70-105) H 05/16/17 05:06 POC Glucose 115 (58-89) H 05/17/17 20:43 Consult Discharge Plan - Plan Referrals: Rambo Soliz Jr, MD [Partnered Physician] - 05/29/17 9:15 am (Your appointments with Dr. Soliz are located in [place]. [address] [place], [place] [id number] phone number - [phone] ) Bryant Nielsen MD [Primary Care Provider] - 07/22/17 1:00 pm
--- NOTE | 2017-05-17 21:54 | Spine Progress Note ---
Date of Encounter: 05/15/17 Time of Encounter: 15:25 Subjective Principal diagnosis: Status post lumbar fusion Interval history: The patient is without complaints. Having episodes of confusion. Afebrile vital signs are stable. Incision is clean dry and intact. Neurovascularly intact with regard to bilateral lower extremities. Fires all upper and lower extremity motor groups. . Assessment :stable. Plan mobilize ,continue analgesics, discharge planning. Objective Vital signs: Vital Signs Temp Pulse Resp BP Pulse Ox 05/17/17 19:36 97.9 F 77 14 111/66 93 05/17/17 15:14 98.3 F 85 16 117/57 94 05/17/17 11:10 97.9 F 76 16 112/62 96 05/17/17 07:08 98.6 F 83 18 100/57 95 05/17/17 04:39 98.7 F 83 16 106/67 92 05/17/17 00:39 99.2 F 77 16 94/54 95 Intake and Output 05/17/17 05/17/17 05/17/17 07:59 15:59 23:59 Intake Total 500 / 500 360 / 360 Output Total 150 / 150 200 / 200 150 / 150 Balance 350 / 350 160 / 160 -150 / -150 Intake: Oral 500 / 500 360 / 360 Output: Urine 150 / 150 200 / 200 150 / 150 Other: Meal Lunch Percent of Meal Consumed 35% # Voids 1 1 Blood Glucose* 124 133 114 - Labs CBC & BMP: 05/16/17 05:06 05/16/17 05:06 Labs: Abnormal lab results WBC 15.8 K/mcL (4.3-11.1) H 05/16/17 05:06 RBC 3.59 M/mcL (3.82-4.97) L 05/16/17 05:06 Hgb 9.4 g/dL (11.5-15.4) L 05/16/17 05:06 Hct 28.6 % (35.3-44.9) L 05/16/17 05:06 MCV 79.7 fL (83.0-100.0) L 05/16/17 05:06 MCH 26.2 pg (28.0-33.3) L 05/16/17 05:06 RDW 14.6 % (11.5-14.5) H 05/16/17 05:06 Neutrophils # 12.6 K/mcL (1.6-8.9) H 05/16/17 05:06 Sodium 135 mEq/L (136-145) L 05/16/17 05:06 BUN 31 mg/dL (8-23) H 05/16/17 05:06 Est GFR ( Amer) 55 (> 60) L 05/16/17 05:06 Est GFR (Non-Af Amer) 45 (> 60) L 05/16/17 05:06 BUN/Creatinine Ratio 27 (6-26) H 05/16/17 05:06 Glucose 150 mg/dL (70-105) H 05/16/17 05:06 POC Glucose 115 (58-89) H 05/17/17 20:43 Consult Discharge Plan - Plan Referrals: Rambo Soliz Jr, MD [Partnered Physician] - 05/29/17 9:15 am (Your appointments with Dr. Soliz are located in [place]. [address] [place], [place] [id number] phone number - [phone] ) Bryant Nielsen MD [Primary Care Provider] - 07/22/17 1:00 pm
--- NOTE | 2017-05-17 21:55 | Spine Progress Note ---
Date of Encounter: 05/16/17 Time of Encounter: 08:45 Subjective Principal diagnosis: Status post lumbar fusion Interval history: The patient is without complaints. Having episodes of confusion. Poorly mobilizing. Afebrile vital signs are stable. Incision is clean dry and intact. Neurovascularly intact with regard to bilateral lower extremities. Fires all upper and lower extremity motor groups. . Assessment :stable. Plan mobilize ,continue analgesics, discharge planning. Objective Vital signs: Vital Signs Temp Pulse Resp BP Pulse Ox 05/17/17 19:36 97.9 F 77 14 111/66 93 05/17/17 15:14 98.3 F 85 16 117/57 94 05/17/17 11:10 97.9 F 76 16 112/62 96 05/17/17 07:08 98.6 F 83 18 100/57 95 05/17/17 04:39 98.7 F 83 16 106/67 92 05/17/17 00:39 99.2 F 77 16 94/54 95 Intake and Output 05/17/17 05/17/17 05/17/17 07:59 15:59 23:59 Intake Total 500 / 500 360 / 360 Output Total 150 / 150 200 / 200 150 / 150 Balance 350 / 350 160 / 160 -150 / -150 Intake: Oral 500 / 500 360 / 360 Output: Urine 150 / 150 200 / 200 150 / 150 Other: Meal Lunch Percent of Meal Consumed 35% # Voids 1 1 Blood Glucose* 124 133 114 - Labs CBC & BMP: 05/16/17 05:06 05/16/17 05:06 Labs: Abnormal lab results WBC 15.8 K/mcL (4.3-11.1) H 05/16/17 05:06 RBC 3.59 M/mcL (3.82-4.97) L 05/16/17 05:06 Hgb 9.4 g/dL (11.5-15.4) L 05/16/17 05:06 Hct 28.6 % (35.3-44.9) L 05/16/17 05:06 MCV 79.7 fL (83.0-100.0) L 05/16/17 05:06 MCH 26.2 pg (28.0-33.3) L 05/16/17 05:06 RDW 14.6 % (11.5-14.5) H 05/16/17 05:06 Neutrophils # 12.6 K/mcL (1.6-8.9) H 05/16/17 05:06 Sodium 135 mEq/L (136-145) L 05/16/17 05:06 BUN 31 mg/dL (8-23) H 05/16/17 05:06 Est GFR ( Amer) 55 (> 60) L 05/16/17 05:06 Est GFR (Non-Af Amer) 45 (> 60) L 05/16/17 05:06 BUN/Creatinine Ratio 27 (6-26) H 05/16/17 05:06 Glucose 150 mg/dL (70-105) H 05/16/17 05:06 POC Glucose 115 (58-89) H 05/17/17 20:43 Consult Discharge Plan - Plan Referrals: Rambo Soliz Jr, MD [Partnered Physician] - 05/29/17 9:15 am (Your appointments with Dr. Soliz are located in [place]. [address] [place] [address] phone number - [phone] ) Bryant Nielsen MD [Primary Care Provider] - 07/22/17 1:00 pm
--- NOTE | 2017-05-17 21:56 | Spine Progress Note ---
Date of Encounter: 05/17/17 Time of Encounter: 21:55 Subjective Principal diagnosis: Status post lumbar fusion Interval history: The patient is without complaints. Having episodes of confusion. Poorly mobilizing. Afebrile vital signs are stable. Incision is clean dry and intact. Neurovascularly intact with regard to bilateral lower extremities. Fires all upper and lower extremity motor groups. . Assessment :stable. Plan mobilize ,continue analgesics, discharge planning. Has arrangements with [facility]. Objective Vital signs: Vital Signs Temp Pulse Resp BP Pulse Ox 05/17/17 19:36 97.9 F 77 14 111/66 93 05/17/17 15:14 98.3 F 85 16 117/57 94 05/17/17 11:10 97.9 F 76 16 112/62 96 05/17/17 07:08 98.6 F 83 18 100/57 95 05/17/17 04:39 98.7 F 83 16 106/67 92 05/17/17 00:39 99.2 F 77 16 94/54 95 Intake and Output 05/17/17 05/17/17 05/17/17 07:59 15:59 23:59 Intake Total 500 / 500 360 / 360 Output Total 150 / 150 200 / 200 150 / 150 Balance 350 / 350 160 / 160 -150 / -150 Intake: Oral 500 / 500 360 / 360 Output: Urine 150 / 150 200 / 200 150 / 150 Other: Meal Lunch Percent of Meal Consumed 35% # Voids 1 1 Blood Glucose* 124 133 114 - Labs CBC & BMP: 05/16/17 05:06 05/16/17 05:06 Labs: Abnormal lab results WBC 15.8 K/mcL (4.3-11.1) H 05/16/17 05:06 RBC 3.59 M/mcL (3.82-4.97) L 05/16/17 05:06 Hgb 9.4 g/dL (11.5-15.4) L 05/16/17 05:06 Hct 28.6 % (35.3-44.9) L 05/16/17 05:06 MCV 79.7 fL (83.0-100.0) L 05/16/17 05:06 MCH 26.2 pg (28.0-33.3) L 05/16/17 05:06 RDW 14.6 % (11.5-14.5) H 05/16/17 05:06 Neutrophils # 12.6 K/mcL (1.6-8.9) H 05/16/17 05:06 Sodium 135 mEq/L (136-145) L 05/16/17 05:06 BUN 31 mg/dL (8-23) H 05/16/17 05:06 Est GFR ( Amer) 55 (> 60) L 05/16/17 05:06 Est GFR (Non-Af Amer) 45 (> 60) L 05/16/17 05:06 BUN/Creatinine Ratio 27 (6-26) H 05/16/17 05:06 Glucose 150 mg/dL (70-105) H 05/16/17 05:06 POC Glucose 115 (58-89) H 05/17/17 20:43 Consult Discharge Plan - Plan Referrals: Rambo Soliz Jr, MD [Partnered Physician] - 05/29/17 9:15 am (Your appointments with Dr. Soliz are located in [place]. [address] [place] [address] phone number - [phone] ) Bryant Nielsen MD [Primary Care Provider] - 07/22/17 1:00 pm
[2017-05-18] MEDS: *HR* HYDROcodone/Acet 5/325 mg TABLET PO PRN (01:18)
[2017-05-18] MEDS: *HR* GlipiZIDE 5 MG TABLET PO SCH (09:45)
[2017-05-18] MEDS: Furosemide 40 MG TABLET PO SCH (09:45)
[2017-05-18] MEDS: amLODIPine 5 MG TABLET PO SCH (09:45)
[2017-05-18] MEDS: Insulin LISPRO 300 UNITS/3 ML VIAL SQ SCH ×2 (09:46→13:07)
[2017-05-18 11:33] VITALS: BP 124/71
--- NOTE | 2017-05-18 12:27 | Discharge Summary ---
Date of Encounter: 05/18/17 Time of Encounter: 12:24 - Discharge Diagnosis (1) Spondylolisthesis Priority: Primary Status: Chronic Qualifiers: Spinal region: lumbar Qualified Code(s): M43.16 - Spondylolisthesis, lumbar region (2) Lumbar stenosis Priority: Secondary Status: Chronic Qualifiers: Neurogenic claudication status: without neurogenic claudication Qualified Code(s): M48.061 - Spinal stenosis, lumbar region without neurogenic claudication (3) Lumbar radiculopathy Priority: Secondary Status: Chronic - Discharge Medications Prescriptions: HYDROcodone/Acet 5/325 mg [Poneto 5-325 mg] 2 tab PO Q4H PRN #60 tablet PRN Reason: Mild To Moderate Pain Home Medications: Atorvastatin [Lipitor] 20 mg PO HS 03/16/15 [History] TraMADol [Ultram] 50 mg PO QID PRN 03/16/15 [History] Gabapentin [Neurontin] 300 mg PO BID 10/10/16 [History] Loperamide HCl [Imodium A-D] 2 mg PO Q6H PRN 10/10/16 [History] glipiZIDE [Glucotrol] 5 mg PO DAILY 10/10/16 [History] Metoprolol [Lopressor] 25 mg PO BID #60 tablet 10/13/16 [Rx] amLODIPine [Norvasc] 5 mg PO DAILY #30 tablet 10/13/16 [Rx] Albuterol Sulfate [Albuterol Inhaler] 2 puff IH Q4HR PRN 05/13/17 [History] Furosemide [Lasix] 40 mg PO DAILY 05/13/17 [History] Naproxen Sodium [Aleve] 220 mg PO BID PRN 05/13/17 [History] HYDROcodone/Acet 5/325 mg [Poneto 5-325 mg] 2 tab PO Q4H PRN #60 tablet 05/18/17 [Rx] Allergies/Adverse Reactions: 3 Allergy/AdvReac Type Severity Reaction Status Date / Time codeine AdvReac Vomiting Verified 05/13/17 07:10 Labs on day of discharge: Labs from last 24 hours 05/17/17 05/17/17 20:43 16:06 POC Glucose 115 H 84 - Impressions ITS Impressions Lumbar Spine X-Ray 05/13/17 00:00 IMPRESSION: Intraoperative view demonstrating posterior fixation from L2-L4. D/ / 05/13/2017 12:38:22 Lalo Yanes MD / andrea Interpreting Provider: Lalo Yanes MD Lumbar Spine X-Ray 05/16/17 08:38 IMPRESSION: 1. Grade 1 retrolisthesis of L1 on L2 with moderate severe multilevel spondylosis. D/ / Anupam Kovacs MD / Anupam Kovacs MD Interpreting Provider: Anupam Kovacs MD Date of admission: 05/13/17 12:40 Primary care physician: Bryant Nielsen MD Consults: 05/13/17 12:42 Consult to Occupational Therapy [CONS] Routine Comment: Evaluate, develop and implement POC Reason for Consult: Postoperative rehabilitation Consult to Physical Therapy [CONS] Routine Comment: Evaluate, develop and implement POC Reason for Consult: Postoperative rehabilitation Consult to Spine Navigator [CONS] [CONS] Routine 05/17/17 21:57 Consult to Head Track Coach [CONS] Routine Reason for SW Consult: rehab placement - Patient Status Disposition: Home Health Service Condition: Good Functional capacity at discharge: uses cane/walker Overall status at discharge: patient is progressing back to baseline - Discharge Instructions Follow Up With: Rambo Soliz Jr, MD [Partnered Physician] - 05/29/17 9:15 am (Your appointments with Dr. Soliz are located in [place]. [address] [place] [address] phone number - [phone] ) Bryant Nielsen MD [Primary Care Provider] - 07/22/17 1:00 pm - Diet and Activity Activity: as per physical therapy Diet: advance to your usual diet - Hospital Course Hospital course: Ms. Caraballo is a 76 year old female The patient had an uneventful postoperative course. Progressed from intravenous analgesic needs to oral analgesic needs only. Remained neurovascularly intact and mobilized satisfactorily. All intraoperative and/or postoperative radiographic studies were satisfactory. Patient is discharged with plan for rehabilitation and follow-up in 2 weeks post discharge on analgesic medication and patient's home medications. - Time Spent with Patient Total time spent providing and/or coordinating discharge services: - VTE Documentation of Mechanical Device: Intermittent pneumatic compression device
== END 2017-05-18 15:07 | DRG 460 ==
LOC: SAMDAY 06:13 → 3NENU 12:40 → INTOOBSV 12:40
PROVIDERS: ADMIT Orthopaedic Surgery Orthopaedic Surgery of the Spine; ATTEND Orthopaedic Surgery Orthopaedic Surgery of the Spine